=== PATIENT | male | born 1990 | race Two or more races ===

== ENCOUNTER 2024-06-25 11:06 | Emergency (ER) | payer SELFPAY ==
[~2024-06-25] VITALS: Ht 172.7 cm; Wt 90.9 kg
[2024-06-25 11:12] VITALS: BP 119/82; PULSE 92; RESP 18; O2SAT 97
== END 2024-06-25 11:45 | disposition left against medical advice (07) ==
LOC: ER 11:06 → EDBD 11:06 → ER 11:30
DX: F10.10 Alcohol abuse, uncomplicated (principal); Z53.21 Procedure and treatment not carried out due to patient leaving prior to being seen by health care provider